=== PATIENT | male | born 1985 | race Caucasian/White ===

== ENCOUNTER → 2021-05-28 11:41 | Outpatient (BNVA) | payer SELFPAY | PROVIDERS: Family Provider Family Medicine; PCP Nurse Practitioner; Visit Provider Registered Nurse Neonatal Intensive Care | DX: N23 Unspecified renal colic (principal) | CPT/HCPCS: 81000 ==

== ENCOUNTER 2023-01-14 16:40 | Emergency (ER) | payer MEDICAID, SELFPAY ==
[2023-01-14 16:41] VITALS: BP 149/81; PULSE 73; RESP 15; TEMP 36.7; O2SAT 97
[2023-01-14 17:15] LABS: Basophils % 0.3 %; Eosinophils # 0.1 10^3/uL (0.0-0.8); Eosinophils % 2.1 %; Hemoglobin 17.1 g/dL (11.7-16.6); Lymphocytes # 2.4 10^3/uL (0.8-4.8); Lymphocytes % 37.9 %; Mean Corpuscular HGB Conc 34.9 g/dL (30.0-36.0); Mean Corpuscular Hemoglobin 30.6 pg (28.0-34.0); Mean Corpuscular Volume 87.8 fl (80-94); Mean Platelet Volume 10.1 fL (7.4-10.4); Monocytes # 0.7 10^3/uL (0.2-0.9); Monocytes % 10.3 %; Neutrophils # 3.12 10^3/uL (1.8-7.7); Neutrophils % 49.2 %; Nucleated Red Blood Cells % 0 %; Platelet Count 252 10^3/cmm (130-400); Red Blood Count 5.58 10^6/uL (4.1-5.3); Red Cell Distribution Width 11.9 % (12.1-15.1); White Blood Count 6.3 10^3/uL (4.0-10.0)
--- NOTE | 2023-01-14 17:17 | USR_ITS ---
PROCEDURE INFORMATION: Exam: US Abdomen, Limited; Right Upper Quadrant Exam date and time: 01/14/2023 5:30 PM Age: 37 years old Clinical indication: Abdominal pain; Additional info: Ruq pain TECHNIQUE: Imaging protocol: Real time ultrasound of the abdomen with image documentation. Limited exam focused on the right upper quadrant. COMPARISON: No relevant prior studies available. FINDINGS: Liver: Echogenic, consistent with fatty infiltration. Gallbladder: No gallstones. No gallbladder wall thickening or pericholecystic fluid. Negative sonographic Gil's sign, as per the performing softball umpire. Biliary ducts: Common bile duct dilatation to approximately 8 mm. No stones. Pancreas: Unremarkable as visualized. Right kidney: No mass. No definite stones. No hydronephrosis. US/US gall bladder [id number] IMPRESSION: 1. Common bile duct dilatation to approximately 8 mm. Correlate with LFTs and, if clinically indicated, ERCP or MRCP. 2. Fatty liver.
[2023-01-14 17:35] LABS: Alanine Aminotransferase 45 U/L (0-41); Albumin Level 4.6 g/dL (3.5-5.2); Alkaline Phosphatase 81 U/L (40-130); Anion Gap 15.3 (5-19); Aspartate Amino Transferase 25 U/L (0-40); Blood Urea Nitrogen 14 mg/dL (6-20); Calcium 9.5 mg/dL (8.5-10.5); Carbon Dioxide 26 mmol/L (22-29); Chloride 103 mmol/L (98-107); Glomerular Filtration Rate 75.3 mL/min (90-130); Glucose 92 mg/dL (65-115); Lipase 27 U/L (13-60); Osmolality Calculated 290 mOsm/kg (285-295); Potassium 4.3 mmol/L (3.5-5.1); Sodium 140 mmol/L (136-145); Total Bilirubin 0.5 mg/dL (0.15-1.2); Total Protein 7.6 g/dL (6.6-8.7)
--- NOTE | 2023-01-14 18:07 | W.ED.ABDPA2 ---
HPI - Abdominal Pain General: Chief Complaint: Abdominal Pain Stated Complaint: pain in right side, n/v/d Time Seen by Provider: 01/14/23 16:55 History of Present Illness: 36-year-old male presented emergency room today with abdominal pain for the past few weeks. He noticed increased pain within the past few days and described pain as sharp sensation mostly on the right upper quadrant with severity of 7 out of 10. Pain with eating fatty and fast food. Some nausea but no vomiting today. Chills, vomiting blood or coughing up blood. Associated Symptoms: Reports nausea; Denies belching, bloating, change in bowel habits, change in stool character, coffee ground emesis, constipation, GI cramping, diarrhea, excessive flatus, heartburn, hematemesis, fecal incontinence and vomiting Review of Systems General: Reports: 10 or more systems reviewed and unremarkable except in HPI and below GI: Reports: abdominal pain and nausea; Denies: vomiting, hematemesis, coffee ground emesis, dysphagia, heartburn, early satiety, diarrhea, constipation, bloating, GI cramping, belching, excessive flatus, fecal incontinence, change in bowel habits, pain on defecation, rectal swelling, rectal itching or change in stool character PFSH ED PFSH: Medical History Asthma, moderate persistent, well-controlled Chronic bilateral low back pain without sciatica Epidermal cyst Intervertebral disc disorders with radiculopathy, lumbosacral region Kidney stones Right-sided back pain Family History Other Cancer Social History Smoking and tobacco status: former smoker Alcohol intake: never Substance/Drug Use: current Agree to transfusion: Yes (09/06/2019) Physical Exam Const: COMMON NORMALS: no acute distress, average body habitus, patient oriented x3, no limitations, healthy appearing, alert and well nourished Neck/C-Spine: COMMON NORMALS: full ROM, no lymphadenopathy, supple, no meningeal signs, no JVD, Thyroid normal and No carotid bruits THYROID: Thyroid normal Cardio: COMMON NORMALS: no JVD GI: COMMON NORMALS: Soft to palpation and No hepatosplenomegaly present INSPECTION: Yes normal to inspection, No abdominal wall ecchymosis, No Abdominal wall edema, No Anasarca, No abdominal distension, No incision, No central obesity, No scaphoid, No scar, No striae, No visible herniation and No Fluid wave present PALPATION: Yes Soft to palpation, Yes Tenderness to palpation present (GI) Details: RUQ, Yes No hepatosplenomegaly present, No Hepatomegaly present, No Splenomegaly present, No Hernia present, No Palpable mass present, No Pulsatile mass present and No Ascites present PERCUSSION: normal to percussion, no fluid wave and no tympanic to percussion Neuro: COMMON NORMALS: patient oriented x3 SENSORIUM/ORIENTATION: Yes alert MENINGEAL SIGNS: Yes no meningeal signs Course Vital Signs: Vital signs: Vital Signs Temperature 98.1 F 01/14/23 16:41 Pulse Rate 56 L 01/14/23 19:11 Respiratory Rate 18 01/14/23 19:11 Blood Pressure 106/62 01/14/23 19:11 Pulse Oximetry 97 01/14/23 19:11 Oxygen Delivery Me thod Room Air 01/14/23 19:11 MDM - Abdominal Pain Medical Decision Making Patient was made comfortable emergency room. Patient had extensive work-up including blood work and ultrasound. Positive lab and ultrasound finding with the patient and his . Follow-up PCP and given referral to to see general surgery Differential Diagnosis Likely abdominal pain, acute appendicitis, calculus of kidney, constipation, diverticulitis, endometriosis, gastroenteritis, pancreatitis and small bowel obstruction Lab Data 01/14/23 17:05 01/14/23 17:05 Labs/Radiology: Radiology Impressions Gallbladder Ultrasound 01/14/23 17:17 IMPRESSION: 1. Common bile duct dilatation to approximately 8 mm. Correlate with LFTs and, if clinically indicated, ERCP or MRCP. 2. Fatty liver. Laboratory Results WBC 6.3 10^3/uL (4.0-10.0) 01/14/23 17:05 RBC 5.58 10^6/uL (4.1-5.3) H 01/14/23 17:05 Hgb 17.1 g/dL (11.7-16.6) H 01/14/23 17:05 Hct 49.0 % (42.0-52.0) 01/14/23 17:05 MCV 87.8 fl (80-94) 01/14/23 17:05 MCH 30.6 pg (28.0-34.0) 01/14/23 17:05 MCHC 34.9 g/dL (30.0-36.0) 01/14/23 17:05 RDW 11.9 % (12.1-15.1) L 01/14/23 17:05 Plt Count 252 10^3/cmm (130-400) 01/14/23 17:05 MPV 10.1 fL (7.4-10.4) 01/14/23 17:05 Neut % (Auto) 49.2 % 01/14/23 17:05 Lymph % (Auto) 37.9 % 01/14/23 17:05 [place] % (Auto) 10.3 % 01/14/23 17:05 Eos % (Auto) 2.1 % 01/14/23 17:05 Baso % (Auto) 0.3 % 01/14/23 17:05 Neut # (Auto) 3.12 10^3/uL (1.8-7.7) 01/14/23 17:05 Lymph # (Auto) 2.4 10^3/uL (0.8-4.8) 01/14/23 17:05 [place] # (Auto) 0.7 10^3/uL (0.2-0.9) 01/14/23 17:05 Eos # (Auto) 0.1 10^3/uL (0.0-0.8) 01/14/23 17:05 Baso # (Auto) 0.0 10^3/uL (0.0-0.1) 01/14/23 17:05 Nucleated RBC % (auto) 0 % 01/14/23 17:05 Nucleated RBCs # 0.0 /100WBC 01/14/23 17:05 Sodium 140 mmol/L (136-145) 01/14/23 17:05 Potassium 4.3 mmol/L (3.5-5.1) 01/14/23 17:05 Chloride 103 mmol/L (98-107) 01/14/23 17:05 Carbon Dioxide 26 mmol/L (22-29) 01/14/23 17:05 Anion Gap 15.3 (5-19) 01/14/23 17:05 BUN 14 mg/dL (6-20) 01/14/23 17:05 Creatinine 1.1 mg/dL (0.7-1.2) 01/14/23 17:05 GFR Calculation 75.3 mL/min (90-130) L 01/14/23 17:05 Glucose 92 mg/dL (65-115) 01/14/23 17:05 Calculated Osmolality 290 mOsm/kg (285-295) 01/14/23 17:05 Calcium 9.5 mg/dL (8.5-10.5) 01/14/23 17:05 Total Bilirubin 0.5 mg/dL (0.15-1.2) 01/14/23 17:05 AST 25 U/L (0-40) 01/14/23 17:05 ALT 45 U/L (0-41) H 01/14/23 17:05 Alkaline Phosphatase 81 U/L (40-130) 01/14/23 17:05 Total Protein 7.6 g/dL (6.6-8.7) 01/14/23 17:05 Albumin 4.6 g/dL (3.5-5.2) 01/14/23 17:05 Globulin 3.0 g/dL (1.3-4.6) 01/14/23 17:05 Lipase 27 U/L (13-60) 01/14/23 17:05 Urine Color Yellow (Yellow) 01/14/23 19:10 Urine Appearance Clear (CLEAR) 01/14/23 19:10 Urine pH 5 (5-7) 01/14/23 19:10 Ur Specific [place] 1.025 (1.005-1.030) 01/14/23 19:10 Urine Protein Neg (Negative) 01/14/23 19:10 Urine Glucose (UA) Norm (Normal) 01/14/23 19:10 Urine Ketones Negative (Negative) 01/14/23 19:10 Urine Blood Neg (Negative) 01/14/23 19:10 Urine Nitrate Negative (Negative) 01/14/23 19:10 Urine Bilirubin Neg (Negative) 01/14/23 19:10 Urine Urobilinogen Norm mg/dL (Negative) 01/14/23 19:10 Ur Leukocyte Esterase Negative (Negative) 01/14/23 19:10 Discharge Plan Discharge Patient Disposition: Home Clinical Impression: Biliary colic, Abdominal pain Condition: Stable Prescriptions: New Augmentin 500-125 mg tablet 1 tab PO BID Qty: 20 0RF ultram 50 mg PO BID PRN (Reason: pain) Qty: 15 0RF No Action (DME) Compact Compressor Nebulizer Misc See Rx Instructions .ROUTE .MEDSUPPLY Qty: 1 Patient Comments: 340 B Plan Rx Instructions: As directed albuterol sulfate 2.5 mg /3 mL (0.083 %) solution for nebulization 2.5 mg INHALATION Q4H PRN (Reason: shortness of breath or wheezing) Qty: 60 5RF cephalexin 500 mg capsule 500 mg PO TID 7 Days Qty: 21 0RF Discharge Orders: Discharge ED (Routine); Ordered 01/14/23 Ordered By: Ry Walton Referrals: Trino Fields DO [Physician] - 4-7 days Discharge Diet: Advance as tolerated and Low Fat Discharge Activity: Resume usual activity Patient Instructions: Abdominal Pain (ED), Opioid Safety, Pain Management Coding Level of Care Code ED [employer] Research Analyst for Rachael Gregg
[2023-01-14 18:33] VITALS: RESP 17; O2SAT 98
[2023-01-14] MEDS: morphine 4 mg/mL SDV 1 mL IVP (18:33)
[2023-01-14] MEDS: ondansetron 2 mg/ML SDV 2 mL 4 MG IVP (18:34)
[2023-01-14 19:11] VITALS: BP 106/62; PULSE 56; RESP 18; O2SAT 97
[2023-01-14 19:13] LABS: Add Urine Microscopic? NO; Charge for UA Resulting for Rev
[2023-01-14 19:19] LABS: Bilirubin Urine Neg (Negative); Blood Urine Neg (Negative); Glucose Urine UA Norm (Normal); Ketones Urine Negative (Negative); Leukocyte Esterase Urine Negative (Negative); Nitrate Urine Negative (Negative); Protein Urine Neg (Negative); Specific Gravity, Urine 1.025 (1.005-1.030); Urine Appearance Clear (CLEAR); Urine Color Yellow (Yellow); Urobilinogen Urine Norm (Negative); pH Urine 5 (5-7)
[2023-01-14 19:51] VITALS: BP 139/71; PULSE 55; RESP 18; O2SAT 96
== END 2023-01-14 19:57 | disposition home or self-care (01) ==
PROVIDERS: Emergency Provider Family Medicine
DX: K80.50 Calculus of bile duct without cholangitis or cholecystitis without obstruction (principal); J45.40 Moderate persistent asthma, uncomplicated; Z87.891 Personal history of nicotine dependence
CPT/HCPCS: 36415; 76705; 80053; 81003; 83690; 85025; 96374; 96375; 99285; J2270; J2405

== ENCOUNTER 2023-07-08 07:40 | Outpatient (CLI) | payer MEDICAID, SELFPAY ==
--- NOTE | 2023-07-08 08:00 | NM_ITS ---
WS: [id number] NUCLEAR MEDICINE HIDA SCAN CLINICAL INFORMATION: biliary colic / abdominal pain TECHNIQUE: Following intravenous administration of 7.4 mCi of technetium 99m mebrofenin, images of th e abdomen were obtained over the course of 60 minutes. Next, gallbladder ejection fraction was determ ined by obtaining preprandial and one-hour postprandial images of the gallbladder following oral navid stion of Ensure. COMPARISON: Ultrasound 01/14/2023 FINDINGS: Normal hepatic uptake at 5 minutes. Normal hepatic excretion. Normal common bile duct and small bowel activity. Gallbladder is visualized by 30 minutes. No evidence of acute cholecystitis. No significant gallbladder emptying at 60 minutes. Findings compatible with gallbladder dysfunction. Recommend correlation for chronic cholecystitis. IMPRESSION: 1. No significant gallbladder emptying at 60 minutes. Findings compatible with gallbladder dysfunc tion. Recommend correlation for chronic cholecystitis.
== END 2023-07-08 07:41 | disposition home or self-care (01) ==
PROVIDERS: PCP Family Medicine Adult Medicine; Visit Provider Surgery
DX: K80.50 Calculus of bile duct without cholangitis or cholecystitis without obstruction (principal); R10.9 Unspecified abdominal pain
CPT/HCPCS: 78227; A9537

== ENCOUNTER 2023-08-09 09:30 | Day surgery (SDC) | payer MEDICAID, SELFPAY ==
[2023-08-09] VITALS (13 sets, daily range): BP systolic 115–161; BP diastolic 54–93; PULSE 53–69; RESP 16–20; TEMP 36.3–36.6; O2SAT 95–98; BMI 35.2
[2023-08-09] MEDS: sodium chloride 0.9% 1,000 ML 30 ML IV (10:07)
[2023-08-09] MEDS: midazolam 1 mg/mL INJ 2 mL 2 MG IVP (10:39)
[2023-08-09] MEDS: ondansetron 2 mg/ML SDV 2 mL 4 MG IVP (10:40)
--- NOTE | 2023-08-09 10:41 | ANES.PREANE2 ---
Pre-Anesthetic Assessment Height/Weight: Height 1.77 m Weight 109.769 kg Temp Pulse Resp BP Pulse Ox O2 Del Method 97.6 F 67 18 161/93 97 Room Air 08/09/23 09:43 08/09/23 09:43 08/09/23 09:43 08/09/23 09:43 08/09/23 09:43 08/09/23 09:43 Operation Date: 08/09/23 11:05 Proposed Procedures p 68296 lap tacho K81.1(Not Applicable) - Niraj Mittal MD Familial anesthetic complications: none Was Beta Jocelyn taken within 24 hours: N/A Was Clonidine taken within 24 hours: N/A Last intake: Intake Last Liquid Date 08/08/23 Last Liquid Time 23:00 Last Solid Date 08/08/23 Last Solid Time 20:30 Social Tobacco (smokes [place]) and No alcohol Exam alert, oriented x 3 and regular rate & rhythm Airway Submandibular: within normal limits Cervical ROM: within normal limits Mallampati: Class II Dentition: full Pulmonary Asthma and Chronic Obstructive Pulmonary Disease GI Gastroesophageal Reflux Disease Metabolic Morbid Obesity Anesthetic Plan ASA status: 3 Anesthesia: General Medications/Allergies Home Medications Medication Instructions Recorded Confirmed Last Taken Type albuterol sulfate 2.5 mg/3 mL 2.5 mg (3 mL) inhalation Q4H PRN 09/06/19 08/06/23 Unknown Rx (0.083 %) solution for nebulization shortness of breath or wheezing #60 vials pantoprazole 40 mg tablet,delayed 40 mg PO DAILY 4 weeks #28 tabs 01/20/23 08/09/23 08/09/23 Rx release (Protonix) albuterol sulfate 90 mcg/actuation 2 puff inhalation Q4H PRN 05/13/23 08/09/23 08/09/23 Rx aerosol inhaler (Ventolin HFA) shortness of breath or wheezing #8.5 grams Allergies Allergy/AdvReac Type Severity Reaction Status Date / Time baclofen Allergy ADR-Diarrhe Verified 08/09/23 09:41 a fluticasone Allergy ALGY-Difficulty Verified 08/09/23 09:41 [From Flovent HFA] Breathing tramadol Allergy ALGY-Difficulty Verified 08/09/23 09:41 Breathing Current Medications Generic Name Dose Route Start Last Admin Trade Name Freq PRN Reason Stop Dose Admin Sodium Chloride 1,000 mls @ 30 mls/hr 08/09/23 09:45 08/09/23 10:07 Sodium Chloride 0.9% IV 08/10/23 09:44 30 mls/hr .Q24H TREY Administration PFSH Anesthesia Medical History Right-sided back pain Kidney stones Epidermal cyst Asthma, moderate persistent, well-controlled Chronic bilateral low back pain without sciatica Intervertebral disc disorders with radiculopathy, lumbosacral region Family History Other Cancer Social History Smoking and tobacco/nicotine status: former use of tobacco/nicotine Alcohol intake: never Substance/Drug Use: current Agree to transfusion: Yes (09/06/2019) Data Anesthesia Cardiac Studies: No Data to Display
--- NOTE | 2023-08-09 11:03 | W.PM.OPSFHP ---
Same Day Surgery H&P Indication for Procedure/HPI DATE OF PROCEDURE: August 09, 2023 CHIEF COMPLAINT/INDICATIONFOR SURGICAL PROCEDURE: chronic cholecystitis PREOP DIAGNOSIS: chronic cholecystitis PLANNED PROCEDURE: Operation Date: 08/09/23 11:05 Proposed Procedures p 90444 lap tacho K81.1(Not Applicable) - Niraj Mittal MD Medications/Allergies* Allergies/Adverse Reactions Allergy/AdvReac Type Severity Reaction Status Date / Time baclofen Allergy ADR-Diarrhe Verified 08/09/23 09:41 a fluticasone Allergy ALGY-Difficulty Verified 08/09/23 09:41 [From Flovent HFA] Breathing tramadol Allergy ALGY-Difficulty Verified 08/09/23 09:41 Breathing Current Medications: Generic Name Dose Route Start Last Admin Trade Name Freq PRN Reason Stop Dose Admin Sodium Chloride 1,000 mls @ 30 mls/hr 08/09/23 09:45 08/09/23 10:07 Sodium Chloride 0.9% IV 08/10/23 09:44 30 mls/hr .Q24H TREY Administration Midazolam HCl 2 mg 08/09/23 09:34 08/09/23 10:39 Midazolam 1 Mg/Ml Inj 2 Ml IVP 2 mg ONCE PRN Administration Preop Anxiety Ondansetron HCl 4 mg 08/09/23 09:34 08/09/23 10:40 Ondansetron 2 Mg/Ml Sdv 2 Ml IVP 4 mg ONCE PRN Administration NAUSEA AND VOMITING Pertinent History/Comorbid Conditions* Medical History (Updated 07/26/23 @ 17:09 by Niraj Mittal MD) Right-sided back pain Kidney stones Epidermal cyst Asthma, moderate persistent, well-controlled Chronic bilateral low back pain without sciatica Intervertebral disc disorders with radiculopathy, lumbosacral region Family History (Updated 09/06/19 @ 10:50 by Lindsey Morrissey MA) Cancer Social History Smoking and tobacco/nicotine status: former use of tobacco/nicotine Alcohol intake: never Substance/Drug Use: current Agree to transfusion: Yes (09/06/2019) Pertinent Exam Findings alert, oriented x 3 and clear to auscultation bilaterally Recommendations Surgery/Procedure today Coding Level of Care Code Acute Code for Chg Fwd
[2023-08-09] MEDS: ceFAZolin 2,000 MG in sodium chloride 0.9% (plus) 50 ML 100 MG IV (11:41)
[2023-08-09] MEDS: lidocaine-epi 1% 20 mL INJ INJECTION (12:16)
[2023-08-09] MEDS: BUPivacaine 0.25% INJ 10 mL INJECTION (12:16)
--- NOTE | 2023-08-09 13:41 | P.OP_ITS ---
Operative Report Date of procedure: August 09, 2023 Pre-op diagnosis: Chronic cholecystitis Post-op diagnosis: Same Post-op findings: Elongated gallbladder, significant inflammation at the level of the hepatocystic triangle Procedure done: Laparoscopic cholecystectomy Specimens removed/disposition: Gallbladder Surgeon: Niraj Mittal MD Air Conditioning Mechanic: XIAO OR Staff Estimated blood loss: 5 Complications: None Brief History: 37-year-old male with history of chronic cholecystitis who presented to my clinic for evaluation for cholecystectomy. After discussion of all risk and benefits as documented in my preop note we decided to proceed. Procedure: Patient was brought into the OR, he was placed in the supine position. General esthesia was given. The abdomen was prepped and draped in the usual sterile fashion. The abdomen was accessed with Optiview at the level of [place]. Initial laparoscopy was done no evidence of visceral injury was noted. Additional 5 mm trocar was placed in the supraumbilical position, 5 mm trocars were placed in the epigastrium right upper quadrant and right flank positions under direct visualization. The gallbladder was grasped at the level of the fundus and elevated, patient had a very stiff and fatty liver making retraction difficult. The infundibulum of the gallbladder was then retracted on the inferolateral direction, I proceeded to open the peritoneum anterior to the hepatocystic triangle using electrocautery, this opening was carried in the medial and lateral direction to the edges of the liver and then on the sides of the gallbladder to allow for better visualization. There were significant challenges to achieve adequate visualization due to patient body habitus and significant fibrous tissue in the hepatocystic triangle. Careful blunt dissection was done and I was able to encircle the cystic duct and artery, I then proceeded to elevate the lower third of the gallbladder from the liver bed thus achieving a critical view of safety. The cystic duct and artery were double clipped proximally and single clipped distally and then transected the gallbladder was removed from the liver bed using electrocautery. The gall bladder bed was evaluated for evidence of bleeding or bile leakage and none was noted, the abdomen was suctioned and irrigated no evidence of bleeding was noted. The specimen was removed via the umbilical trocar site using a Endo Catch bag, the umbilical trocar site was then closed using #0 Vicryl in a suture passer under direct visualization. The epigastric right upper quadrant and right flank trocars were removed under direct visualization, the left upper quadrant trocar was used to evaluate pneumoperitoneum and worsening sequently removed. The wounds were closed in layers using Vicryl for the subcutaneous tissue and 4 Monocryl for the skin. Dermabond was applied. At the end of the procedure all counts were correct, the patient tolerated well the procedure and was transferred to the PACU in stable condition.
[2023-08-09] MEDS: HYDROmorphone 1 mg/mL INJ 1 mL 0.5 MG IVP (14:27)
[2023-08-09] MEDS: oxyCODONE 5 mg IR Tab/Cap PO (15:19)
--- NOTE | 2023-08-09 16:15 | ANE.PACU2 ---
Inpatient post-anesthesia follow up: Airway intact: Yes Vital signs: Temperature 98 F Pulse Rate 67 Respiratory Rate 17 Blood Pressure 134/88 Pulse Oximetry 96 Oxygen Delivery Me thod Room Air Oxygen Flow Rate 6 Fraction of Inspir ed Oxygen Hydration adequate: Yes Nausea and vomiting: No Pain level: 3 Mental status: Baseline
== END 2023-08-09 15:40 | disposition home or self-care (01) ==
PROVIDERS: PCP Family Medicine Adult Medicine; Visit Provider Surgery
PROC: 0FT44ZZ Resection of Gallbladder, Percutaneous Endoscopic Approach (ICD-10-PCS; CPT 47562; principal; 2023-08-09 10:55)
DX: K81.1 Chronic cholecystitis (principal); J44.9 Chronic obstructive pulmonary disease, unspecified; K21.9 Gastro-esophageal reflux disease without esophagitis; E66.01 Morbid (severe) obesity due to excess calories; Z68.35 Body mass index [BMI] 35.0-35.9, adult; Z87.891 Personal history of nicotine dependence
CPT/HCPCS: 47562; 88304; J0330; J0690; J1100; J1170; J2250; J2405; J2704; J2710; J3010; J3490; J7030